=== PATIENT | female | born 1995 | race Caucasian/White ===

== ENCOUNTER 2023-08-28 16:59 | Emergency (ER) | payer OTHER ==
[~2023-08-28] VITALS: Ht 180.3 cm; Wt 77.1 kg
[2023-08-28 18:52] LABS: HEMOGLOBIN 11.8 g/dL (12.0-15.00); MEAN CELL VOLUME 87.3 fL (80.00-100.00); MEAN CORPUSCULAR HEMOGLOBIN 28.6 pg (27.00-32.0); MEAN CORPUSCULAR HGB CONC 32.8 g/dl (32.0-36.0); PLATELET COUNT 188 K/uL (150-450); RED BLOOD COUNT 4.12 M/uL (4.00-6.00); RED CELL DISTRIBUTION WIDTH 14.7 % (11.5-14.5)
[2023-08-28 19:45] LABS: ALBUMIN 3.3 gm/dL (3.4-5.0); BILIRUBIN TOTAL 0.22 mg/dL (0.3-1.2); CALCIUM 9.4 mg/dL (8.5-10.1); CREATININE SERUM 0.56 mg/dL (0.55-1.02); GFR 128.9; GLOBULINA 4.1 G/DL (2.4-3.5); POTASSIUM 3.62 mEq/L (3.5-5.1); TOTAL PROTEIN 7.4 gm/dL (6.4-8.2)
== END 2023-08-28 21:34 | disposition home or self-care (01) ==
LOC: ER 16:59
PROVIDERS: General Practice
DX: O20.8 Other hemorrhage in early pregnancy (principal); Z88.0 Allergy status to penicillin; Z3A.10 10 weeks gestation of pregnancy

== ENCOUNTER 2023-09-03 08:10 | Outpatient (CLI) | payer OTHER | END 2023-09-03 08:11 | disposition home or self-care (01) | LOC: PRENATAL 08:10 | PROVIDERS: ATTEND Obstetrics & Gynecology Maternal & Fetal Medicine | DX: O36.80X0 Pregnancy with inconclusive fetal viability, not applicable or unspecified (principal); Z36.82 Encounter for antenatal screening for nuchal translucency; Z36.9 Encounter for antenatal screening, unspecified; O21.0 Mild hyperemesis gravidarum; Z3A.11 11 weeks gestation of pregnancy ==

== ENCOUNTER 2023-10-08 12:16 | Outpatient (CLI) | payer OTHER | END 2023-10-08 12:19 | disposition home or self-care (01) | LOC: PRENATAL 12:16 | PROVIDERS: ATTEND Obstetrics & Gynecology Maternal & Fetal Medicine | DX: O26.849 Uterine size-date discrepancy, unspecified trimester (principal); O26.879 Cervical shortening, unspecified trimester; Z3A.16 16 weeks gestation of pregnancy ==

== ENCOUNTER 2023-10-08 15:09 | Day surgery (SDC) | payer OTHER ==
[~2023-10-08] VITALS: Ht 180.3 cm; Wt 78.0 kg
[2023-10-08 15:48] LABS: HEMATOCRIT 33.9 % (36.0-45.00); HEMOGLOBIN 11.9 g/dL (12.0-15.00); MEAN CELL VOLUME 89.2 fL (80.00-100.00); MEAN CORPUSCULAR HEMOGLOBIN 31.3 pg (27.00-32.0); PLATELET COUNT 170 K/uL (150-450); RED CELL DISTRIBUTION WIDTH 14.4 % (11.5-14.5)
[2023-10-08 16:12] LABS: INR 1.03; PARTIAL THROMBOPLASTIN TIME 28.8 SECONDS (22.0-34.0); PROTHROMBIN TIME 10.8 SECONDS (9.0-11.5)
== END 2023-10-08 22:30 | disposition home or self-care (01) ==
LOC: CIR.AMB 15:09 → O/R 15:09 → LDR 15:09 → O/R 17:45 → LDR 17:45 → EDSTATUS 17:45 → CIR.AMB 22:30 → O/R 22:30
PROVIDERS: ATTEND Obstetrics & Gynecology Maternal & Fetal Medicine
DX: O34.32 Maternal care for cervical incompetence, second trimester (principal); O26.872 Cervical shortening, second trimester; Z3A.16 16 weeks gestation of pregnancy; Z88.0 Allergy status to penicillin

== ENCOUNTER 2023-10-31 11:30 | Outpatient (CLI) | payer OTHER ==
[2023-10-31 12:37] LABS: HEMATOCRIT 31.6 % (36.0-45.00); HEMOGLOBIN 11.2 g/dL (12.0-15.00); MEAN CELL VOLUME 90.2 fL (80.00-100.00); MEAN CORPUSCULAR HEMOGLOBIN 31.9 pg (27.00-32.0); MEAN CORPUSCULAR HGB CONC 35.4 g/dl (32.0-36.0); PH,URINE 6.5 (5.0-8.0); PLATELET COUNT 148 K/uL (150-450); URINE APPEARANCE Cloudy; URINE BILIRRUBIN Negative (NEGATIVE); URINE BLOOD Negative; URINE COLOR Yellow; URINE GLUCOSE Negative (NEGATIVE); URINE LEUKOCYTE Small; URINE NITRATE Negative; URINE PROTEIN Negative (NEGATIVE)
[2023-10-31 12:41] LABS: URINE BACTERIA 2125.5 uL (0.0-1933); URINE EPITHELIAL CELLS 138.9 uL (0.0-38.8); URINE RBC 16.2 uL (0.0-20.8); URINE WBC 41.1 uL (0.0-23.2)
== END 2023-10-31 16:29 | disposition home or self-care (01) ==
LOC: OBS/DEL
PROVIDERS: Specialist; ATTEND Student in an Organized Health Care Education/Training Program
DX: O26.892 Other specified pregnancy related conditions, second trimester (principal); O23.42 Unspecified infection of urinary tract in pregnancy, second trimester; N39.0 Urinary tract infection, site not specified; Z3A.19 19 weeks gestation of pregnancy

== ENCOUNTER → 2023-10-31 | Emergency (ER) | payer OTHER | END | disposition left against medical advice (07) | LOC: ER 09:29 | DX: Z53.21 Procedure and treatment not carried out due to patient leaving prior to being seen by health care provider (principal) ==

== ENCOUNTER 2023-11-16 14:48 | Outpatient (CLI) | payer OTHER | END 2023-11-16 14:53 | disposition home or self-care (01) | LOC: PRENATAL 14:48 | PROVIDERS: ATTEND Obstetrics & Gynecology Maternal & Fetal Medicine | DX: O35.3XX0 Maternal care for (suspected) damage to fetus from viral disease in mother, not applicable or unspecified (principal); O34.30 Maternal care for cervical incompetence, unspecified trimester; O26.879 Cervical shortening, unspecified trimester; O44.00 Complete placenta previa NOS or without hemorrhage, unspecified trimester; Z3A.21 21 weeks gestation of pregnancy ==

== ENCOUNTER 2023-12-03 14:01 | Outpatient (CLI) | payer OTHER | END 2023-12-03 14:02 | disposition home or self-care (01) | LOC: PRENATAL 14:01 | PROVIDERS: ATTEND Obstetrics & Gynecology Maternal & Fetal Medicine | DX: O26.849 Uterine size-date discrepancy, unspecified trimester (principal); O26.879 Cervical shortening, unspecified trimester; Z3A.24 24 weeks gestation of pregnancy ==

== ENCOUNTER → 2024-01-01 11:51 | Outpatient (CLI) | payer OTHER | END | disposition home or self-care (01) | LOC: PRENATAL 11:51 | PROVIDERS: ATTEND Obstetrics & Gynecology Maternal & Fetal Medicine | DX: O26.849 Uterine size-date discrepancy, unspecified trimester (principal); O26.879 Cervical shortening, unspecified trimester; Z3A.28 28 weeks gestation of pregnancy ==

== ENCOUNTER 2024-02-10 13:14 | Outpatient (CLI) | payer OTHER | END 2024-02-10 13:18 | disposition home or self-care (01) | LOC: PRENATAL 13:14 | PROVIDERS: ATTEND Obstetrics & Gynecology Maternal & Fetal Medicine | DX: O26.849 Uterine size-date discrepancy, unspecified trimester (principal); O36.8199 Decreased fetal movements, unspecified trimester, other fetus; Z3A.34 34 weeks gestation of pregnancy ==

== ENCOUNTER 2024-10-26 00:15 | Emergency (ER) | payer OTHER ==
[~2024-10-26] VITALS: Ht 180.3 cm; Wt 77.1 kg
[~2024-10-26 00:15] MED LIST: LEVSIN/SL0.125 MG SL; ONDANSETRON ODT8 MG PO; PEPCID40 MG PO; PROGESTERONE200 MG VAG
[2024-10-26 00:31] VITALS: BP 118/71; O2SAT 100
[2024-10-26] MEDS ORDERED: FAMOTIDINE/PF 20 MG/2 ML VIAL IV PUSH STA (01:55)
[2024-10-26] MEDS ORDERED: HYOSCYAMINE SULFATE 0.125 MG TAB.SUBL SL STA (01:55)
[2024-10-26] MEDS ORDERED: PROMETHAZINE HCL 50 MG/ML AMPUL IM STA (01:55)
[2024-10-26] MEDS ORDERED: LACTOBACILLUS ACIDOPHILUS 1 CAP CAP PO STA (01:55)
[2024-10-26] MEDS ORDERED: 0.9 % SODIUM CHLORIDE 1,000 ML IV ONE (02:00)
[2024-10-26 02:37] LABS: HEMATOCRIT 37.2 % (36.0-45.00); HEMOGLOBIN 12.5 g/dL (12.0-15.00); MEAN CELL VOLUME 83.9 fL (80.00-100.00); MEAN CORPUSCULAR HEMOGLOBIN 28.1 pg (27.00-32.0); MEAN CORPUSCULAR HGB CONC 33.5 g/dl (32.0-36.0); PLATELET COUNT 218 K/uL (150-450); RED BLOOD COUNT 4.44 M/uL (4.00-6.00)
[2024-10-26 02:52] LABS: ALBUMIN 3.9 gm/dL (3.4-5.0); BILIRUBIN TOTAL 0.35 mg/dL (0.3-1.2); CREATININE SERUM 0.71 mg/dL (0.55-1.02); GFR 97.32; GLOBULINA 4.1 G/DL (2.4-3.5); POTASSIUM 3.72 mEq/L (3.5-5.1)
[2024-10-26 03:13] LABS: URINE APPEARANCE Cloudy; URINE BILIRRUBIN Negative (NEGATIVE); URINE BLOOD Negative; URINE COLOR Yellow; URINE GLUCOSE Negative (NEGATIVE); URINE LEUKOCYTE Small; URINE NITRATE Negative; URINE PROTEIN Trace (NEGATIVE); URINE UROBILINOGEN 0.2 E.U./dl
[2024-10-26 03:17] LABS: URINE BACTERIA 2517.6 uL (0.0-1933); URINE EPITHELIAL CELLS 35.6 uL (0.0-38.8); URINE RBC 4.7 uL (0.0-20.8); URINE WBC 68.2 uL (0.0-23.2)
[2024-10-26 03:20] LABS: URINE CAST 0.58 uL (0.0-1.40); URINE KETONE 40 (NEGATIVE)
[2024-10-26] MEDS ORDERED: ZOFRAN8 MG PO (07:17)
== END 2024-10-26 07:38 ==
LOC: ER 00:15
PROVIDERS: General Practice
DX: R11.10 Vomiting, unspecified (principal); R19.7 Diarrhea, unspecified; Z88.0 Allergy status to penicillin

== ENCOUNTER 2025-02-24 03:57 | Emergency (ER) | payer OTHER ==
[~2025-02-24] VITALS: Ht 180.3 cm; Wt 84.4 kg
[~2025-02-24 03:57] MED LIST changes: +ZOFRAN8 MG PO
[2025-02-24] MEDS ORDERED: DICYCLOMINE HCL 10 MG CAPSULE PO STA (04:32)
[2025-02-24] MEDS ORDERED: DICYCLOMINE HCL 10 MG CAPSULE PO ONE (04:33)
== END 2025-02-24 04:55 | disposition home or self-care (01) ==
LOC: ER 03:57
DX: K80.50 Calculus of bile duct without cholangitis or cholecystitis without obstruction (principal); Z88.0 Allergy status to penicillin